=== PATIENT | female | born 1960 | race Caucasian/White ===

== ENCOUNTER 2017-05-28 11:38 | Day surgery (SDC) | payer BC ==
[~2017-05-28] VITALS: Ht 162.6 cm; Wt 93.4 kg
[~2017-05-28 11:38] MED LIST: B-121000 MC4 PO; CETIRIZ/PSE1 TAB PO; D3400 UNIT PO; DICLOFENAC75 MG PO; FISH OIL1200 M1 PO; GABAPENTIN300 MG PO; GLIPIZIDE10 M3 PO; HUMULIN R1 M1 SC; HYDROCHLORO25 MG/TAB PO; INSULIN SYR1 ML/31 G SC; INVOKANA300 MG PO; LEVEMIR SC; LEVEMIR1000 UNITS SC; LOSARTAN POT50 MG PO; MAXEPA1000 M1 PO; METFORMIN1000 MG PO; NOVOLO1 SC; VICTOZA18 MG/3 ML SC; ZPAK PO
[2017-05-28 14:49] VITALS: BP 115/58
== END 2017-05-28 14:55 | disposition home or self-care (01) | DRG 951 ==
LOC: ENDO 11:38
PROVIDERS: ATTEND Internal Medicine Gastroenterology
PROC: 0DJD8ZZ Inspection of Lower Intestinal Tract, Via Natural or Artificial Opening Endoscopic (ICD-10-PCS; principal; 2017-05-28)
DX: Z12.11 Encounter for screening for malignant neoplasm of colon (principal); E11.9 Type 2 diabetes mellitus without complications; K64.4 Residual hemorrhoidal skin tags; I10 Essential (primary) hypertension

== ENCOUNTER 2018-06-16 17:48 | Emergency (ER) | payer OTHER, BC ==
[~2018-06-16] VITALS: Ht 162.6 cm; Wt 100.0 kg
[2018-06-16 19:02] VITALS: BP 170/81
== END 2018-06-16 19:54 | disposition home or self-care (01) | DRG 103 ==
LOC: ED 17:48
DX: R51 Headache (principal); R42 Dizziness and giddiness; V49.49XA Driver injured in collision with other motor vehicles in traffic accident, initial encounter; Y92.414 Local residential or business street as the place of occurrence of the external cause

== ENCOUNTER 2022-11-18 10:12 | Emergency (ER) | payer BC ==
[~2022-11-18] VITALS: Ht 162.6 cm; Wt 106.0 kg
[2022-11-18 10:42] LABS: BASO% 0.9 % (0-3); EOS% 4.6 % (0-8); HEMATOCRIT 44.2 % (37.0-47.0); HEMOGLOBIN 13.9 g/dl (12.0-16.0); IMMATURE GRANULOCYTES 0.3 % (0.0-5.0); MEAN CELL VOLUME 81.4 fL CALC (80.0-100.0); MEAN CORPUSCULAR HGB 25.6 pG CALC (26.0-32.0); MEAN CORPUSCULAR HGB CONC 31.4 g/dL CAL (32.0-36.0); NEUT# 5.77 thou/uL (2.00-7.15); NEUT% 54.2 % (42-76); RED BLOOD COUNT 5.43 mill/uL (4.20-5.60); RED CELL DISTRI WIDTH 13.9 % (11.5-15.5)
[2022-11-18 10:51] VITALS: BP 150/92
[2022-11-18 10:54] LABS: ALBUMIN 4.1 g/dL (3.2-5.0); ALKALINE PHOSPHATASE 115 u/l (38-126); ANION GAP 12 (6-22 (CALC)); BUN 12 mg/dL (8-23); BUN/CREATININE RATIO 18 (12-20 (CALC)); CARBON DIOXIDE 27 mmol/l (22-30); CHLORIDE 104 mmol/l (95-108); CREATININE 0.7 mg/dL (0.5-1.0); GFR FOR AFR.AMER. > 60 ML/MIN (>=60 (CALC)); GFR OTHER RACES > 60 ML/MIN (>=60 (CALC)); POTASSIUM 3.9 mmol/l (3.5-5.1); SODIUM 139 mmol/l (137-146); TOTAL PROTEIN 7.7 g/dL (6.3-8.2)
[2022-11-18 10:55] LABS: BILIRUBIN, TOTAL 0.4 mg/dL (0.02-1.3); SGOT/AST 31 u/l (9-36)
[2022-11-18 11:01] VITALS: BP 157/65
[2022-11-18 13:00] VITALS: BP 156/112
[2022-11-18 13:31] VITALS: BP 136/67
[2022-11-18 14:25] VITALS: BP 136/67
[2022-11-18] MEDS ORDERED: NAPROXEN500 MG PO (14:30)
== END 2022-11-18 14:31 | disposition home or self-care (01) | DRG 552 ==
LOC: ED 10:12
PROVIDERS: Family Medicine
DX: M54.6 Pain in thoracic spine (principal); R07.9 Chest pain, unspecified; I10 Essential (primary) hypertension; E11.9 Type 2 diabetes mellitus without complications; E78.5 Hyperlipidemia, unspecified; E66.9 Obesity, unspecified; Z79.84 Long term (current) use of oral hypoglycemic drugs; Z79.4 Long term (current) use of insulin
CPT/HCPCS: Q9967